=== PATIENT | male | born 1995 | race Hispanic/Latino ===

== ENCOUNTER 2020-09-20 04:30 | Inpatient (IN) | payer OTHER, MEDICAID, SELFPAY ==
[2020-09-20] VITALS (21 sets, daily range): BP systolic 114–155; BP diastolic 70–94; PULSE 66–86; RESP 10–18; TEMP 36.1–37; O2SAT 96–100; BMI 30.6
--- NOTE | 2020-09-20 04:43 | ED_ITS ---
HPI - Extremity Problem General Chief complaint: Extremity Problem,Nontraumatic Stated complaint: RIGHT HAND SWOLLEN AND RED Time Seen by Provider: 09/20/20 04:35 Source: patient Mode of arrival: Ambulatory Limitations: no limitations History of Present Illness HPI Narrative: 25-year-old male nonsmoker with noncontributory medical history presents with a chief complaint of a worsening red, painful and swollen right ring finger. He states that he was poked on the palmar surface of his hand a few days ago by a thorn any developed some redness, pain and swelling within a day. He states about 2 days ago the pain and redness were sufficient to warrant visiting an outside emergency department and they did an incision and drainage and placed him on antibiotics. He states that since them his pain has worsened and now he is unable to move his finger. He denies any systemic findings such as fever, shaking chills nor nausea or vomiting. He is otherwise well and free of complaint. He does have a history of methamphetamine use but only smokes it and has never injected before. He denies any allergies. He had clear liquids about 0430 and food at 0000. Patient is right-handed and denies any previous surgeries MD Complaint: extremity pain Onset (ago): day(s) Pain Consistency: constant Location: right Quality: stabbing and aching Radiation: none Relieving factors: rest Exacerbating factors: range of motion and palpation Related Data Allergies Allergy/AdvReac Type Severity Reaction Status Date / Time No Known Drug Allergies Allergy Verified 09/20/20 05:12 Review of Systems Constitutional Constitutional: Denies chills, Denies fatigue, Denies fever(s), Denies frequent falls, Denies lethargy and Denies weakness Eyes Eyes: Denies change in vision, Denies eye discharge, Denies irritation and Denies loss of vision ENT Ears, Nose, Mouth, and Throat: Denies change in voice, Denies dizziness, Denies neck pain, Denies sore throat and Denies throat swelling Cardiovascular Cardiovascular: Denies chest pain, Denies irregular heart rhythm, Denies lightheadedness, Denies palpitations, Denies dyspnea, Denies dyspnea on exertion and Denies orthopnea Respiratory Respiratory: Denies cough, Denies dyspnea, Denies dyspnea on exertion and Denies wheezing Gastrointestinal Gastrointestinal: Denies abdominal pain, Denies change in bowel habits, Denies diarrhea, Denies nausea and Denies vomiting Musculoskeletal Musculoskeletal: Reports arthralgias, Reports joint swelling, Reports limited range of motion, Denies neck pain and Denies numbness Integumentary/Breasts Skin/Breast: Denies pruritus, Reports erythema, Denies rash, Reports skin pain, Reports skin swelling and Reports wounds Neurologic Neurologic: Denies behavioral changes, Denies confusion, Denies dizziness, Denies frequent falls, Denies loss of vision, Denies numbness and Denies weakness Psychiatric Psychiatric: Denies anxiety, Denies behavioral changes, Denies confusion, Denies depression, Denies homicidal ideation and Denies suicidal ideation Endocrine Endocrine: Denies fatigue, Denies flushing and Denies palpitations Hematologic/Lymphatic Hematologic/Lymphatic: Denies easy bruising Allergic/Immunologic Allergic/Immunologic: Denies urticaria, Denies throat swelling and Denies wheezing Patient History Social History Smoking Status: Former smoker Smoking Status: Former smoker alcohol intake frequency: 0-2 drinks per day Substance Use Type: amphetamines Exam Narrative Exam Narrative: GEN: AOx3 and in mild distress EYES: Pupils are equal, round, and reactive to light and accommodation. Extraoccular muscles are intact bilaterally. There is no subconjunctival hemorrhage or exudate. CHEST: Lungs are clear to auscultation bilaterally and free of wheezes, rales, or rhonchi. Heart rate is regular rhythm, there are no murmurs, clicks, rubs, or gallops. There is no chest wall tenderness. ABD: Abdomen is soft and nontender. There is no guarding or rebound. Bowel sounds are normal in all 4 quadrants. There is no mass or organomegaly. EXT: Right ring finger is significantly erythematous, swollen stuck in flexion. He has significantly increased pain with passive extension and palpation along the flexor tendon. There is a puncture wound on the palmar surface overlying the metacarpophalangeal joint which he states is not only where he was punctured by the thorn but also where the other emergency department had performed an incision and drainage. SKIN: Otherwise Warm, pink, and dry. No erythema or rash Initial Vital Signs Initial Vital Signs: Vital Signs Temperature 97.7 F 09/20/20 04:39 Pulse Rate 80 09/20/20 04:39 Respiratory Rate 18 09/20/20 04:39 Blood Pressure 147/93 H 09/20/20 04:39 Pulse Oximetry 100 09/20/20 04:39 Course Orders Ordered: ED Orders 09/20/20 04:50 C-Reactive Protein Quant Stat COVID19 - ADMIT (DIRECTOR OF RADIOLOGY swab/PCR) Stat Complete Blood Count AUTO DIFF Stat Comprehensive Metabolic Panel Stat Erythrocyte Sedimentation Rate Stat 09/20/20 05:00 Blood Culture Stat Lactated Ringer's (Lactated Ringers) 1,000 mls @ 1,000 mls/hr IV BOLUS ONE Stop: 09/20/20 05:38 Last Admin: 09/20/20 05:07 Dose: 1,000 mls/hr Documented by: Cefazolin Sodium/Dextrose (Ancef) 2 gm in 100 mls @ 200 mls/hr IV NOW ONE Stop: 09/20/20 05:35 Discontinued Medications Hydromorphone HCl (Hydromorphone 0.5 Mg Inj) 0.5 mg IV NOW ONE Stop: 09/20/20 05:07 Last Admin: 09/20/20 05:13 Dose: 0.5 mg Documented by: Consultations Consultation #1: Paged ortho, happy to accept. Admit now and will see this morning. Ancef, elevate, NPO, pain control Time: 04:45 Vital Signs Vital signs: Vital Signs - 8 hr 09/20/20 04:39 Temperature 97.7 F Pulse Rate 80 Respiratory Rate 18 Blood Pressure 147/93 H Pulse Oximetry 100 MDM - Extremity (Nontraumatic) Lab Data Result diagrams: 09/20/20 04:50 09/20/20 04:50 Labs: Lab Results 09/20/20 09/20/20 09/20/20 Range/Units 04:50 04:50 04:50 WBC 11.3 H (4.5-11.0) X10^3/uL RBC 4.54 (4.5-5.9) X10^6/uL Hgb 13.9 (13.5-17.5) g/dL Hct 41.7 (41-53) % MCV 91.9 (80-100) fL MCH 30.7 (26-34) PG MCHC 33.4 (30-36) % RDW 12.5 (11.6-14.8) % Plt Count 174 (150-400) X10^3/uL Neut % (Auto) 77.0 H (50-75) % Lymph % (Auto) 14.5 L (25-40) % [place] % (Auto) 6.0 (3-14) % Eos % (Auto) 2.0 (2-4) % Baso % (Auto) 0.5 (0-2) % Neut # (Auto) 8700 H (4061-4240) /uL Lymph # (Auto) 1600 (1377-5818) /uL [place] # (Auto) 700 (0-900) /uL Eos # (Auto) 200 (0-450) /uL Baso # (Auto) 100 (0-100) /uL Sodium 136 L (137-145) mmol/L Potassium 3.9 (3.4-5.1) mmol/L Chloride 100 (98-107) mmol/L Carbon Dioxide 29 (22-32) mmol/L BUN 12 (9-20) mg/dL Creatinine 0.82 (0.66-1.25) mg/dL Estimated GFR > 60.0 (>60) mL/min BUN/Creatinine Ratio 14.6 (6-22) Glucose 89 (70-100) mg/dL Calcium 9.1 (8.4-10.2) mg/dL Total Bilirubin 0.6 (0.2-1.3) mg/dL AST 26 (17-59) IU/L ALT 20 (<50) IU/L Alkaline Phosphatase 82 (38-126) U/L C-Reactive Protein 6.0 H (<1.0) mg/dL Total Protein 7.4 (6.3-8.2) g/dL Albumin 4.1 (3.5-5.0) g/dL Globulin 3.3 (1.7-4.1) g/dL Albumin/Globulin Ratio 1.2 (1.0-2.8) Discharge Plan Departure Admit Date/Time: 09/20/20 05:13 Admit Provider: Mukesh Parker
[2020-09-20 05:01] LABS: Add Manual Diff / Slide Review NO; Basophils Absolute Auto 100 /uL (0-100); Basophils Percent Auto 0.5 % (0-2); Eosinophils Absolute Auto 200 /uL (0-450); Hematocrit 41.7 % (41-53); Hemoglobin 13.9 g/dL (13.5-17.5); Lymphocytes Absolute Auto 1600 /uL (1100-4500); Lymphocytes Percent Auto 14.5 % (25-40); Mean Corpuscular HGB Conc 33.4 % (30-36); Mean Corpuscular Hemoglobin 30.7 PG (26-34); Mean Corpuscular Volume 91.9 fL (80-100); Monocytes Absolute Auto 700 /uL (0-900); Neutrophils Absolute Auto 8700 /uL (1500-7000); Platelet Count 174 X10^3/uL (150-400); Red Blood Cell Count 4.54 X10^6/uL (4.5-5.9); Red Cell Distribution Width 12.5 % (11.6-14.8); White Blood Cell Count 11.3 X10^3/uL (4.5-11.0)
[2020-09-20 05:07] LABS: Alanine Aminotransferase 20 IU/L (<50); Albumin 4.1 g/dL (3.5-5.0); Albumin Globulin Ratio 1.2 (1.0-2.8); Alkaline Phosphatase 82 U/L (38-126); Aspartate Aminotransferase 26 IU/L (17-59); BUN Creatinine Ratio 14.6 (6-22); Bilirubin Total 0.6 mg/dL (0.2-1.3); Blood Urea Nitrogen 12 mg/dL (9-20); Calcium 9.1 mg/dL (8.4-10.2); Carbon Dioxide 29 mmol/L (22-32); Chloride 100 mmol/L (98-107); Estimated Glomerular Filt Rate > 60.0 mL/min (>60); Globulin 3.3 g/dL (1.7-4.1); Glucose 89 mg/dL (70-100); HEMOLYSIS 26 (0-50); Potassium 3.9 mmol/L (3.4-5.1); Sodium 136 mmol/L (137-145); Total Protein 7.4 g/dL (6.3-8.2)
[2020-09-20] MEDS: LACTATED RINGERS 1,000 ML 1000 ML IV (05:07)
[2020-09-20] MEDS: HYDROMORPHONE 0.5 MG INJ IV (05:13)
[2020-09-20] MEDS: CEFAZOLIN 2 GM/100 ML FROZ.PIGGY IV ×4 (05:20→23:49)
[2020-09-20 05:21] LABS: Erythrocyte Sedimentation Rate 17 MM/HR (0-15)
[2020-09-20 05:53] LABS: COVID19 - ADMIT (NP swab/PCR) Negative (Negative)
--- NOTE | 2020-09-20 06:35 | PC.NURSE ---
Admitted to room 218 for right ring finger Cellulitis. Oriented to his room & encouraged to call if he needed to get OOB to the BR. Pt C/O pain notified Dr. Parker via answering service, but not able to get a hold of him. Left a message to call here in [facility]. Awaiting for MD call pt. very tired & sleepy. Will cont. POC & monitor.
--- NOTE | 2020-09-20 06:59 | PC.NURSE ---
Called ER to get an order, Rani CAMEJO states is busy talking to a pt. Dr. Parker called back ordered to give LR @ 50 cc/hr. after bolus in done. & Oxycodone 5 mg. with sips of water. Will enter order.
[2020-09-20] MEDS: LACTATED RINGERS 1,000 ML 50 ML IV ×2 (07:46→12:40)
--- NOTE | 2020-09-20 08:01 | PC.NURSE ---
Addendum entered by Jaja Vargas R.N. 09/20/20 10:50: Patient becoming agitated, crying, yelling fuck and it hurts. Oxycodone 5 mg administered. Patient remains tearful. MD called about ordered pain medications, OK'd to give second Oxy. This RN returned to patients room, patient is now side lying, quiet, with eyes closed. Will continue to monitor. Original Note: Patient resting in bed with eyes closed, breathing unlabored, 99% on RA. Lungs CTA. Patient c/o pain 09/27. Patient drowsy, does not open eyes to respond. LR @50cc/hr infusing in LAC. R 3rd finger, swollen, notable erythema, joint stiffness. HR WNL, patient denies headache, SOB or dizziness. BT active x 4, reports last BM 09/20. Patient instructed to void and remove personal clothing and jewelry, patient mumbled ok. Bed alarm on, call light in reach.
[2020-09-20] MEDS: LACTATED RINGERS 1,000 ML 100 ML IV ×3 (08:15→21:28)
--- NOTE | 2020-09-20 08:32 | PM.CN ---
History of Present Illness Consult details Date Patient Seen: 09/20/20 Time Patient Seen: 08:33 Chief complaint: RIGHT HAND SWOLLEN AND RED Reason for consult: right 4th finger infection Narrative: 25-year-old male nonsmoker with noncontributory past medical history presents with a chief complaint of a worsening red, painful and swollen right ring finger. He states that he was poked on the palmar surface of his hand a few days ago by a thorn any developed some redness, pain and swelling within a day. He states about 2 days ago the pain and redness were sufficient to warrant visiting an outside emergency department ([facility]) and they did an incision and drainage and placed him on oral abx antibiotics (keflex and bactrim). He states that since them his pain has worsened and now he is unable to move his finger without pain. Patient denies systemic symptoms denies any nausea vomiting fevers chills. Meds Home Medications and Allergies Home Medications Medication Instructions Recorded Confirmed Type No Known Home Medications 09/20/20 09/20/20 History Allergies Allergy/AdvReac Type Severity Reaction Status Date / Time No Known Drug Allergies Allergy Verified 09/20/20 05:12 Review of Systems Review of Systems ROS: Yes All systems reviewed with the patient and are negative except as otherwise documented Exam Vital Signs (past 8 hours): - 09/20/20 04:39 09/20/20 06:02 09/20/20 07:34 Temperature 97.7 F 97.4 F L 98.6 F Pulse Rate 80 74 73 Respiratory Rate 18 18 17 Blood Pressure 147/93 H 142/82 H 145/73 H Pulse Oximetry 100 100 100 Oxygen Delivery Method Room Air Narrative Exam Narrative: Neurovascularly intact. He does have fusiform swelling of the proximal to mid phalanx the proximal portion of the right 4th digit. He has not fusiform swelling of the entire digit. He is able to flex and extend the finger actively. He does have pain with terminal flexion and extension. He does not have any tenderness to palpation at the distal phalanx over the flexor tendon. He has not have a positive Tinel's over the flexor tendon proximally. There was a small 2 mm wound over the palmar aspect of his hand in line with the long axis of the 4th finger. This appears to be where he had a small I&D for stone removal. No active drainage from the site at this time. White discoloration at the small wound appears to be purulence under the skin. Objective Labs Result Diagrams: 09/20/20 04:50 09/20/20 04:50 Labs: Laboratory Results - last 24 hr 09/20/20 09/20/20 09/20/20 04:50 04:50 04:50 WBC 11.3 H RBC 4.54 Hgb 13.9 Hct 41.7 MCV 91.9 MCH 30.7 MCHC 33.4 RDW 12.5 Plt Count 174 Neut % (Auto) 77.0 H Lymph % (Auto) 14.5 L [place] % (Auto) 6.0 Eos % (Auto) 2.0 Baso % (Auto) 0.5 Neut # (Auto) 8700 H Lymph # (Auto) 1600 [place] # (Auto) 700 Eos # (Auto) 200 Baso # (Auto) 100 ESR 17 H Sodium 136 L Potassium 3.9 Chloride 100 Carbon Dioxide 29 BUN 12 Creatinine 0.82 Estimated GFR > 60.0 BUN/Creatinine Ratio 14.6 Glucose 89 Calcium 9.1 Total Bilirubin 0.6 AST 26 ALT 20 Alkaline Phosphatase 82 C-Reactive Protein 6.0 H Total Protein 7.4 Albumin 4.1 Globulin 3.3 Albumin/Globulin Ratio 1.2 SARS-CoV-2 (PCR) 09/20/20 04:50 WBC RBC Hgb Hct MCV MCH MCHC RDW Plt Count Neut % (Auto) Lymph % (Auto) [place] % (Auto) Eos % (Auto) Baso % (Auto) Neut # (Auto) Lymph # (Auto) [place] # (Auto) Eos # (Auto) Baso # (Auto) ESR Sodium Potassium Chloride Carbon Dioxide BUN Creatinine Estimated GFR BUN/Creatinine Ratio Glucose Calcium Total Bilirubin AST ALT Alkaline Phosphatase C-Reactive Protein Total Protein Albumin Globulin Albumin/Globulin Ratio SARS-CoV-2 (PCR) Negative Assessment & Plan Assessment & Plan narrative: Patient is a 25-year-old male who sustained a thorn to the palmar aspect of his right hand in line with the long axis of 4th degrees finger. This resulted in localized redness and swelling he went to [facility] where the thorn was removed knees placed on oral antibiotics. His swelling has gotten worse over the last 2 days. Does not appear to be flexor tenosynovitis at this time however appears to be evolving into this. Plan is for I&D today with cultures with subsequent directed IV antibiotics. -keep NPO -OCTOR today for I&D Time Spent With Patient Time with patient: 15-24 minutes
[2020-09-20] MEDS: OXYCODONE IR 5 MG TABLET PO (10:00)
--- NOTE | 2020-09-20 11:42 | PT-IP ANOTE ---
Addendum entered and electronically signed by Jannette Lozano, PT 09/20/20 13:15: Confirmed with ordering provider that this PT consult was entered in error. Will discharge orders. Original Note: Pt to OR for right hand 4th digit I&D today at 1230. Called to clarify with ordering provider whether this consult was entered mistakenly. Will follow up after surgery if appropriate.
--- NOTE | 2020-09-20 13:07 | PM.PREOP ---
Pre-operative Note COVID-19 COVID-19 status: Negative Result date/Date tested (Pos, Neg/Pending): 09/20/20 Interval Note History & Physical reviewed/Exam performed by Physician: Yes Changes to H&P: No H&P completed within 30 days and has changed as indicated here:: Plan for right 4th finger irrigation and debridement
--- NOTE | 2020-09-20 13:40 | SUR.OPER ---
Supine on padded OR bed, head on pillow, right arm on large padded arm board controlled by [employer], left arm secured on padded arm board at <90 degrees abduction, legs uncrossed, safety belt at thigh, tape over blanket over lower legs.
--- NOTE | 2020-09-20 14:17 | PM.OP.1 ---
Operative Date/Time/Diagnoses Date of procedure: 09/20/20 Time of procedure: 14:17 Pre-op diagnosis: right ring finger abscess/pyogenic flexor tendon synovitis Post-op diagnosis: same Procedure & Clinicians Procedure: Sharp irrigation debridement of right ring finger abscess as well as irrigation of the flexor tendon sheath and release of the A1 francoise Same procedure as scheduled: Yes Indications: Patient is a 25-year-old male who presented with worsening pain in the right ring finger extending down to the palmar aspect of his hand. He had sustained a thorn into the palmar aspect of his hand several days ago he was subsequent seen at [facility] where the thorn was removed after small I&D and oral antibiotics were initiated. He presented here this morning with worsening of pain despite antibiotics. Patient has fusiform swelling of the proximal half of his digits but not the distal half. He has signs of evolving flexor tendon synovitis. Surgeon: Mukesh Parker Click Yes if Unassisted: Yes Anesthesia Type: General Operative Notes Findings: Abscess in the subcutaneous tissues of the right palmar aspect of the hand in line with the right ring finger. Abscess extends into the palmar and dorsal aspects of the proximal half of the right ring finger P scant purulence within the flexor tendon sheath. Closure Type: non-primary Specimen(s): other (2x wound culture) Estimated Blood Loss (mL): 50 Blood products transfused: none Tourniquet time (min): 19 Procedure in detail: Patient was met in the preoperative holding area where the site and side of surgery were marked by . Informed consent was reviewed including the risks and benefits of irrigation debridement and release of the A1 francoise. Patient demonstrates understanding of the risks and benefits of proceeding with surgery and wishes to proceed. Informed consent was signed. All last minute questions were answered. Patient was then brought back to the operating room where he was induced under general anesthesia. A nonsterile tourniquet was placed on the right arm and the right arm was then prepped and draped in normal sterile fashion with Betadine. A surgical time-out was performed verifying the site and side of surgery as well as the name of the patient. The hand was elevated for several minutes prior to inflating the tourniquet. It was not exsanguinated with an Esmarch due to concern for infection spread. A 15 blade was used to make an incision at the distal palmar crease in line with the right ring finger. Patient was then used to spread down to the level of the flexor tendon. At this point purulence was encountered in the subcutaneous tissue as well as the small amount of purulence within the flexor tendon sheath itself. Next I turned my attention to the small wound just distal to the distal palmar crease where the dorm was apparently removed. Necrotic appearing tissue was ellipsed out and gross purulence was encountered at this time point. A new 15. Blade was then used to make incision at the distal interphalangeal crease of the right ring finger on the palmar aspect a 15 blade was then used to incise the flexor tendon sheath at this level. I then returned my attention to the area where the skin was ellipsed out and sharp debridement of necrotic tissue and purulence was then performed. I was able to express purulence by placing pressure on the finger itself and the surrounding tissues. After several rounds of this head was no longer able to express any further purulence. An Angiocath was then inserted into the flexor tendon sheath after release of the A1 francoise as able to flush 120 cc of normal saline through the Angiocath and I could see clear fluid being expressed from the A5 francoise incision. I felt like there was some purulence over the dorsal aspect of the right ring finger as well and made a counter incision just radial to the dorsal aspect of the finger at the proximal phalanx. I then used the ledbetter at this spread as well and I then irrigated all wounds with 3 L of normal saline using cysto tubing did blunt debridement while irrigating with normal saline no further purulence was encountered. At this point the tourniquet was let down at 19 minutes the time there is no pulsatile arterial bleeding. Plain packing was then placed into the incisions with exception of the incision for the A5 francoise. All incisions were then dressed with Xeroform and dry dressings. Complications: none Post-operative Condition: stable Disposition: PACU Plan for aftercare: Admit for IV antibiotics, antibiotics will be tailored based off of the intraoperative cultures. Nonweightbearing right upper extremity.
--- NOTE | 2020-09-20 16:28 | CM.DANOTE ---
DCP/Assessment: Reviewed chart. Patient is a 25yr old male admitted to [facility] with right swollen hand (specifically finger) No PCP listed. Primary payor is 1)[facility] 2)Medicaid. Met with patient this AM explained CM/SW role. Patient reports that he actively smokes (meth) on regular basis. Patient reports that he is currently staying in [place]. Patient reports that he has been in/out of penitentiary for the last year. Patient having I&D today. Patient reports that he currently wants resources for substance abuse. CALL OR CONTACT CENTRE COACH notified patient that they will be provided prior to d/c. P: Home when stable. CALL OR CONTACT CENTRE COACH to provide patient with community resources for substance abuse. LAYA Carlson Discharge Planning/Care Management CM Discharge Assessment Start: 09/20/20 16:24 Freq: Status: Active Protocol: Document 09/20/20 16:24 KJS (Rec: 09/20/20 16:28 KJS [id number]) Discharge Planning Assessment Assigned Silverer LAYA Carlson Contact Information Jenna Hanson (Mother) ph# [phone] Advance Directives? No Advance Directives on File No History Provided By Patient,Medical Record Prior Living Arrangements Apartment/Condo Household Members significant other,family Type of transporation used prior to Drives own vehicle admit Willing to Return to Facility? No Independent with ADL's Yes Is patient alert and oriented? Yes Caregiver for Another No Comment Pending needs. Transportation Arrangement Patient reports that he has car in [facility] parking lot. Referrals Initiated Other Additional Comment Patient would benefit from substance abuse resources prior to d/c. Whiteboard Updated in Patient Room with Yes name and ext. # of Silverer Review Status In Process Next Review Type Continued Stay Review
[2020-09-20] MEDS: VANCOMYCIN 1,000 MG/200 ML PIGGYBACK 200 MG IV (18:01)
[2020-09-20] MEDS: OXYCODONE IR 10 MG TABLET PO ×2 (18:15→21:37)
--- NOTE | 2020-09-20 18:28 | PC.NURSE ---
Addendum entered by Ofelia Polo R.N. 09/20/20 22:13: Pt resting at intervals Med 2120 for discomfort. IVF continue as per orders. MD notified, order for nicoderm patch Arm elevated on pillow w/ice. Call light w/in reach, pt calls appropriately for needs., Continue w/plan of care. Original Note: Pt dosing at intervals. Lungs clear, SpO2 99% RA Right hand dsg CDI, pulses ++ IVF LR infusing @ 100cc/hr into LAC via pump w/o incidence. Med w/oxycodone at 1820 for 7/10 pain. Call light w/in reach, pt calls appropriately for needs.
[2020-09-20] MEDS: ACETAMINOPHEN 325 MG TABLET 975 MG PO (21:35)
[2020-09-20] MEDS: NICOTINE 14 PATCH 14 MG TOP (22:31)
[2020-09-21 00:50] VITALS: BP 132/86; PULSE 79; RESP 18; TEMP 37.2; O2SAT 100
[2020-09-21] MEDS: OXYCODONE IR 10 MG TABLET PO ×6 (00:58→21:20)
--- NOTE | 2020-09-21 01:47 | PC.NURSE ---
patient asleep at shift change but now awake. Girlfriend in room/bed with patient. Breath sounds CTA with RA sat of 100%. HRR. Denies nausea. BT present and abdomen is soft; reports he has passed flatus (giggling when responding about flatus). Denies dysuria, frequency or urgency with urination. Is able to turn self and gets up to bathroom independently. Right hand dressing is CDI; 4th finger is erythematous to mid knuckle and swollen. Fingers are cool and dry with good capillary refill. Is able to move all fingers somewhat limitedly and has sensation to light touch with some slight tingling. Did complain of 8/10 pain so medicated with Oxycodone.; has arm elevated on pillows and ice pack applied. Placed on contact isolation as showing gm + cocci on gm stain so will need to r/o MRSA. Fall risk score is low so bed alarm is not being used.
[2020-09-21 04:37] VITALS: BP 151/98; PULSE 77; RESP 18; TEMP 36.4; O2SAT 99
[2020-09-21 06:54] LABS: Hematocrit 40.2 % (41-53); Hemoglobin 13.6 g/dL (13.5-17.5); Mean Corpuscular HGB Conc 33.8 % (30-36); Mean Corpuscular Hemoglobin 30.9 PG (26-34); Mean Corpuscular Volume 91.3 fL (80-100); Platelet Count 160 X10^3/uL (150-400); Red Cell Distribution Width 12.4 % (11.6-14.8); White Blood Cell Count 9.8 X10^3/uL (4.5-11.0)
[2020-09-21] MEDS: ACETAMINOPHEN 325 MG TABLET 975 MG PO ×3 (10:00→21:19)
[2020-09-21] MEDS: NICOTINE 14 PATCH 14 MG TOP (10:00)
[2020-09-21] MEDS: LACTATED RINGERS 1,000 ML 100 ML IV (10:20)
[2020-09-21 10:30] VITALS: BP 138/78; PULSE 78; RESP 18; TEMP 36.7; O2SAT 100
[2020-09-21 12:00] VITALS: BP 133/77; PULSE 76; RESP 17; TEMP 36.6; O2SAT 100
[2020-09-21] MEDS: VANCOMYCIN 1,000 MG/200 ML PIGGYBACK 200 MG IV ×2 (14:15→18:28)
[2020-09-21] MEDS: SODIUM CHLORIDE 0.9% 250 ML 21 ML IV (14:16)
--- NOTE | 2020-09-21 15:20 | PC.NURSE ---
Pt lethargic this a.m. easily awakened A&Ox3. although sleeping a lot throughout the morning continuously reports pain to R hand/finger /10. R ring finger Swollen and red, reports tingling sensation and pain slight movement able to wiggle fingers. VSS, afebrile. PA at bedside changing dressing this afternoon. Vancomycin started, pt needing reminding to keep IV arm straight. Endorsed to oncoming RN.
[2020-09-21 16:05] VITALS: BP 125/71; PULSE 71; RESP 20; TEMP 36.4; O2SAT 100
--- NOTE | 2020-09-21 16:22 | CM.DPC ---
DCP Continued: Met with patient at bedside. Provided recovery resources and information: [place], [place]. Patient was very receptive to information. PLAN: CM Team to continue to follow. LAYA Carlson MSW Student
--- NOTE | 2020-09-21 16:45 | PM.PNPO.1 ---
Subjective Subjective Date Patient Seen: 09/21/20 Time Patient Seen: 15:31 Interval history: Pain is moderate to severe. Reports no N/V. Denies fever or chills. Exam Vital Signs (past 8 hours): - 09/21/20 10:30 09/21/20 12:00 Temperature 98.1 F 98 F Pulse Rate 78 76 Respiratory Rate 18 17 Blood Pressure 138/78 133/77 Pulse Oximetry 100 100 Oxygen Delivery Method Room Air Oxygen Flow Rate 0 Const General: cooperative and well developed Orientation: alert and oriented x3 Extrem Right upper extremity: hand (Dressing inctact. Scant drainage. Packing removed and replaced.) Objective Labs Result Diagrams: 09/21/20 06:35 09/20/20 04:50 Labs: Laboratory Results - last 24 hr 09/21/20 06:35 WBC 9.8 RBC 4.40 L Hgb 13.6 Hct 40.2 L MCV 91.3 MCH 30.9 MCHC 33.8 RDW 12.4 Plt Count 160 PFSH Social History household members: significant other and family Smoking Status: Current every day smoker alcohol intake: former Assessment & Plan Post-op Postoperative Procedures: Procedures Operation Date: 09/20/20 13:00 Actual Procedures Side Surgeon p I&D 4th ring finger Right Mukesh Parker MD Status post I&D. New packing and dressing today. Waiting on culture results. Quality VTE Deep Vein Thrombosis/Pulmonary Embolism Present on Admission: No
[2020-09-21 21:45] VITALS: BP 111/64; PULSE 79; RESP 21; TEMP 36.6; O2SAT 100
[2020-09-22] MEDS: VANCOMYCIN 1,000 MG/200 ML PIGGYBACK 200 MG IV ×3 (01:19→13:21)
[2020-09-22 01:20] VITALS: BP 132/67; PULSE 77; RESP 18; TEMP 36.4; O2SAT 98
[2020-09-22] MEDS: OXYCODONE IR 10 MG TABLET PO ×7 (01:28→21:19)
--- NOTE | 2020-09-22 02:58 | PC.NURSE ---
patient is alert and oriented. Breath sounds CTA with RA sat of 98%. HRR. Denies nausea. BT present and is passing flatus. Denies dysuria, frequency or urgency with urination. Independent with mobility. Dressing to right hand is CDI. Has good radial pulse, fingers warm to touch and can move all fingers; denies tingling. Refusing to wear SCD's tonight so reminded to ankle wave. States pain is 7/10 so medicated with Oxycodone; declines ice pack but extremity is elevated on pillows. Remains on contact isolation as wound culture is growing staph aureus. Fall risk score is low.
[2020-09-22 05:39] VITALS: BP 127/77; PULSE 58; RESP 18; TEMP 36.1; O2SAT 100
[2020-09-22] MEDS: SODIUM CHLORIDE 0.9% FLUSH 10 ML IV ×3 (06:29→21:19)
[2020-09-22] MEDS: ACETAMINOPHEN 325 MG TABLET 975 MG PO ×3 (08:36→21:18)
[2020-09-22] MEDS: NICOTINE 14 PATCH 14 MG TOP (08:38)
[2020-09-22 08:44] VITALS: BP 126/89; PULSE 80; RESP 18; TEMP 35.9; O2SAT 99
[2020-09-22 11:34] VITALS: BP 140/85; PULSE 70; RESP 18; TEMP 36.1; O2SAT 100
[2020-09-22 11:41] LABS: Add Manual Diff / Slide Review NO; Basophils Absolute Auto 100 /uL (0-100); Basophils Percent Auto 0.9 % (0-2); Eosinophils Absolute Auto 300 /uL (0-450); Eosinophils Percent Auto 4.3 % (2-4); Hematocrit 40.9 % (41-53); Hemoglobin 13.9 g/dL (13.5-17.5); Lymphocytes Absolute Auto 1600 /uL (1100-4500); Lymphocytes Percent Auto 27.1 % (25-40); Mean Corpuscular HGB Conc 33.9 % (30-36); Mean Corpuscular Hemoglobin 31.1 PG (26-34); Mean Corpuscular Volume 91.7 fL (80-100); Monocytes Absolute Auto 500 /uL (0-900); Monocytes Percent Auto 8.2 % (3-14); Neutrophils Absolute Auto 3600 /uL (1500-7000); Neutrophils Percent Auto 59.5 % (50-75); Platelet Count 208 X10^3/uL (150-400); Red Blood Cell Count 4.46 X10^6/uL (4.5-5.9); Red Cell Distribution Width 12.5 % (11.6-14.8)
[2020-09-22 12:00] LABS: C-Reactive Protein Quant 6.4 mg/dL (<1.0)
[2020-09-22] MEDS: VANCOMYCIN TROUGH 1 REQUEST MISC (12:30)
[2020-09-22 12:45] LABS: Erythrocyte Sedimentation Rate 30 MM/HR (0-15)
[2020-09-22 13:11] LABS: Vancomycin Trough 10.6 ug/mL (10-20)
--- NOTE | 2020-09-22 14:47 | P.PN_ITS ---
Subjective Subjective Date Patient Seen: 09/22/20 Time Patient Seen: 11:27 Interval history: Pain moderate to severe overall improved today compared to yesterday. Denies fever or chills. No nausea or vomiting. Exam Vital Signs (past 8 hours): - 09/22/20 08:44 09/22/20 11:34 Temperature 96.7 F L 96.9 F L Pulse Rate 80 70 Respiratory Rate 18 18 Blood Pressure 126/89 140/85 Pulse Oximetry 99 100 Oxygen Delivery Method Room Air Oxygen Flow Rate 0 Narrative Exam Narrative: The dressing is removed. knee the replaced packing. Still fair amount of swelling of the finger. Sensation is intact in good capillary refill distally. Objective Labs Result Diagrams: 09/22/20 11:35 09/20/20 04:50 Labs: Laboratory Results - last 24 hr 09/22/20 09/22/20 09/22/20 11:35 11:35 12:20 WBC 6.0 RBC 4.46 L Hgb 13.9 Hct 40.9 L MCV 91.7 MCH 31.1 MCHC 33.9 RDW 12.5 Plt Count 208 Neut % (Auto) 59.5 Lymph % (Auto) 27.1 [place] % (Auto) 8.2 Eos % (Auto) 4.3 H Baso % (Auto) 0.9 Neut # (Auto) 3600 Lymph # (Auto) 1600 [place] # (Auto) 500 Eos # (Auto) 300 Baso # (Auto) 100 ESR 30 H C-Reactive Protein 6.4 H Vancomycin Trough 10.6 Gram Stain Final 09/20/20-1444 White blood cells Moderate WBCs Gram Positive Cocci Scant Aerobic Culture for wounds Final 09/22/20- 0702 Organism 1 Methicillin Resis Staph Aureus Growth MODERATE Called To: NR.AMH MRSA? YES 1. Methicillin Resis Staph Aureus M.I.C. RX --------- --- * Daptomycin 0.25 S * Vancomycin 1 S * Ciprofloxacin >=8 R * Clindamycin 0.25 S * Doxycycline 2 S * Erythromycin >=8 R * Gentamicin <=0.5 S * Levofloxacin 4 I * Linezolid 2 S * Moxifloxacin 1 S * Oxacillin [place] >=4 R * Rifampin <=0.5 S * Tetracycline >=16 R * Trimethoprim/Sulfamethoxazole >=320 R Anaerobic Culture Preliminary 09/22/20- 1025 No growth. [facility] Social History household members: significant other and family Smoking Status: Current every day smoker alcohol intake: former Assessment & Plan Post-op Postoperative Procedures: Procedures Operation Date: 09/20/20 13:00 Actual Procedures Side Surgeon p I&D 4th ring finger Right Mukesh Parker MD Postop day 2 status post I&D 4th ring finger. After evaluation by Dr. lovell in discussion recommend 1 more day of IV antibiotics. The packing needs to be replaced daily. Keep dressing clean and dry. Possible discharge home today if continues to improve otherwise may require repeat I and D. Quality VTE Deep Vein Thrombosis/Pulmonary Embolism Present on Admission: No
[2020-09-22 16:19] VITALS: BP 133/74; PULSE 55; RESP 20; TEMP 36.8; O2SAT 98
[2020-09-22] MEDS: VANCOMYCIN 1,500 MG/300 ML PIGGYBACK 200 MG IV (18:16)
[2020-09-22] MEDS: SODIUM CHLORIDE 0.9% 250 ML 21 ML IV (18:17)
[2020-09-22 19:35] VITALS: BP 130/70; PULSE 62; RESP 20; TEMP 36.9; O2SAT 100
[2020-09-23] MEDS: VANCOMYCIN 1,500 MG/300 ML PIGGYBACK 200 MG IV (02:59)
[2020-09-23 03:00] VITALS: BP 127/69; PULSE 72; RESP 16; TEMP 36.7; O2SAT 98
[2020-09-23] MEDS: SODIUM CHLORIDE 0.9% FLUSH 10 ML IV ×2 (03:01→07:48)
[2020-09-23] MEDS: OXYCODONE IR 10 MG TABLET PO ×4 (03:01→13:33)
--- NOTE | 2020-09-23 03:21 | PC.NURSE ---
Has been asleep since shift change and now awakened to do vitals/assessment and start IV antibiotics. When asked about pain patient states it is sharp and rates severity as 7/10 so medicated with Oxycodone. Is alert and oriented. Breath sounds CTA with RA sat of 98%. HRR. Denies nausea. BT present and abdomen is soft; reports last BM was on Sunday. Denies dysuria, frequency or urgency with urination. Independent with mobility. Dressing to right hand is CDI; 4th finger is still erythematous to mid knuckle and is swollen. Does state fingers tingle again tonight; are warm to touch with good capillary refill. Refusing SCD's so reminded to ankle wave. Fall risk score is low. Wound culture + for MRSA and remains on contact isolation.
[2020-09-23] MEDS: ACETAMINOPHEN 325 MG TABLET 975 MG PO ×2 (07:47→13:33)
--- NOTE | 2020-09-23 08:39 | PM.PNPO.1 ---
Subjective Subjective Date Patient Seen: 09/23/20 Time Patient Seen: 08:39 Interval history: Patient states he is doing well and is in no pain. At this time patient denies fever, chills, nausea, shortness of breath, chest pain, or urinary retention. Patient states that he is eager to go home and is not looking forward to any further operations procedures. Exam Vital Signs (past 8 hours): - 09/23/20 03:00 Temperature 98.0 F Pulse Rate 72 Respiratory Rate 16 Blood Pressure 127/69 Pulse Oximetry 98 Oxygen Delivery Method Room Air Oxygen Flow Rate 0 Narrative Exam Narrative: 25-year-old male postop day 3 status post irrigation and debridement of the right ring finger abscess, irrigation of the flexor tendon sheath, and release of A1 francoise. Patient is resting comfortably in bed, is in no acute distress and is alert and oriented x3. Skin is warm and dry. Mild fusiform swelling surrounding the right 4th digit on the right hand. Right 4th digit with mild amount of erythema (patient states that the swelling and redness has decreased substantially). Thumb opposition performed without difficulty or discomfort. Capillary refill less than 2 seconds. Good sensation throughout the right upper extremity to light touch. Resp Effort & Inspection: normal respiratory effort and able to speak in complete sentences Skin General: no rashes or lesions noted Objective Labs Result Diagrams: 09/22/20 11:35 09/20/20 04:50 Labs: Laboratory Results - last 24 hr 09/22/20 09/22/20 09/22/20 11:35 11:35 12:20 WBC 6.0 RBC 4.46 L Hgb 13.9 Hct 40.9 L MCV 91.7 MCH 31.1 MCHC 33.9 RDW 12.5 Plt Count 208 Neut % (Auto) 59.5 Lymph % (Auto) 27.1 [place] % (Auto) 8.2 Eos % (Auto) 4.3 H Baso % (Auto) 0.9 Neut # (Auto) 3600 Lymph # (Auto) 1600 [place] # (Auto) 500 Eos # (Auto) 300 Baso # (Auto) 100 ESR 30 H C-Reactive Protein 6.4 H Vancomycin Trough 10.6 PFSH Social History household members: significant other and family Smoking Status: Current every day smoker alcohol intake: former Assessment & Plan Post-op Postoperative Procedures: Procedures Operation Date: 09/20/20 13:00 Actual Procedures Side Surgeon p I&D 4th ring finger Right Mukesh Parker MD Postoperative day: 3 Postoperative status: doing well Postoperative plan narrative: Patient is eager to leave the hospital and has stated that he has no interest in further procedures or surgeries at this time. Patient states that he is doing well overall and is ready to go home. Will consult pharmacy for PO antibiotics recommendations. Quality VTE Deep Vein Thrombosis/Pulmonary Embolism Present on Admission: No
[2020-09-23 09:09] VITALS: BP 129/71; PULSE 85; RESP 18; TEMP 36.8; O2SAT 98
[2020-09-23] MEDS: VANCOMYCIN 1,500 MG/300 ML PIGGYBACK 150 MG IV (10:23)
[2020-09-23 11:37] LABS: C-Reactive Protein Quant 2.5 mg/dL (<1.0)
[2020-09-23 12:00] VITALS: BP 124/69; PULSE 73; RESP 18; TEMP 35.9; O2SAT 96
--- NOTE | 2020-09-23 12:39 | P.DS_ITS ---
History of Present Illness History of Present Illness Date Patient Seen: 09/23/20 Time Patient Seen: 12:39 Chief complaint: RIGHT HAND SWOLLEN AND RED Narrative: Refer to previous H PI Discharge Providers Provider Date of admission: 09/20/20 05:13 Discharge Date: 09/23/20 Consults: 09/20/20 08:04 Consult to Discharge Planning Routine Comment: Consult to Physical Therapy Evaluate & Treat Comment: Physician Instructions: Evaluate and Treat Consult to Respiratory Therapy Evaluate & Treat Comment: Physician Instructions: Evaluate and treat 09/20/20 12:39 Consult to Respiratory Therapy Evaluate & Treat Comment: Physician Instructions: Evaluate and treat 09/20/20 16:08 Consult to Discharge Planning Routine Comment: Discharge provider: Monty Covarrubias PA-C Summary Hospital Course Discharge Diagnosis: Right ring finger abscess Pyogenic flexor tendon synovitis Status post irrigation and debridement of right ring finger abscess, irrigation of the flexor tendon sheath, and release of A1 francoise Hospital Course: Patient was admitted to the hospital following the above-listed procedure for the above-listed diagnoses. Following the procedure the patient h as been convalescing appropriately in his pain has been managed with current pain control regimen. That the course of the patient's stay he has denies fever, chills, nausea, chest pain, shortness of breath, or urinary retention. Patient has had good sensation throughout the right upper extremity following the procedure. The swelling around the right 4th digit has decreased substantially since his admission. Patient has remained nonweightbearing on the right upper extremity throughout his stay. Status at Discharge Cognitive/behavioral status at discharge: oriented Functional status at discharge: independent ambulation Overall status at discharge: patient is progressing back to baseline Exam Vital Signs (past 8 hours): - 09/23/20 09:09 09/23/20 12:00 Temperature 98.3 F 96.7 F L Pulse Rate 85 73 Respiratory Rate 18 18 Blood Pressure 129/71 124/69 Pulse Oximetry 98 96 Oxygen Delivery Method Room Air Oxygen Flow Rate 0 Narrative Exam Narrative: Patient is resting comfortably bed, is in no acute distress, is alert and oriented x3. Skin is warm and dry. Right 4th digit on the right hand has fusiform swelling and mild erythema (patient states has improved substantially). Thumb opposition intact, good good sensation appreciated throughout the right upper extremity. Capillary refill less than 2 seconds. Const General: cooperative, healthy appearing and comfortable Resp Effort & Inspection: normal respiratory effort and able to speak in complete sentences Skin General: no rashes or lesions noted Objective Labs Result Diagrams: 09/22/20 11:35 09/20/20 04:50 Labs: Laboratory Results - last 24 hr 09/22/20 09/22/20 09/23/20 11:35 12:20 11:00 ESR 30 H C-Reactive Protein 2.5 H Vancomycin Trough 10.6 PFSH Social History household members: significant other and family Smoking Status: Current every day smoker alcohol intake: former Discharge Assessment & Plan Assessment and Plan Assessment: Patient is doing well. Plan of Treatment: Patient is to work with scheduled hand therapy following discharge from the hospital. Following discharge patient is to follow-up with Dr. Parker in clinic. The patient is to continue his current pain control regimen as it is adequately controlling the patient's pain level. Patient is to keep dressing over the right 4th digit intact and dry. Patient is to remain nonweightbearing on the right upper extremity. Patient has been advised to contact clinic with any concerns or questions. Any signs of increased swelling, redness, or increased pain around the digit should be reported to the clinic. Discharge Plan Discharge Plan Patient Disposition: Home Provider Discharge Comment: Been cleared for discharge. Discharge orders & Medications Prescriptions: New acetaminophen 325 mg Tablet 975 mg PO TID Qty: 90 RF: 0 doxycycline hyclate 100 mg Tablet 100 mg PO BID Qty: 42 RF: 0 oxycodone 10 mg Tablet 10 mg PO Q3HR PRN (Reason: Pain, Severe (7-10)) Qty: 10 RF: 0 No Action No Known Home Medications RF: 0 Diet/Activity/Treatments Diet: Diet as Tolerated Activity: Nonweightbearing on the right upper extremity. Skin/Wound/Dressing Care Report to your healthcare provider any signs of infection, such as:: chills, fever, night sweats, increased pain, unusual drainage and unusual redness Dressing: Dressing to remain clean, dry, and intact. Visit Report/Discharge Packet Instructions: DI for Heart Failure, DI for Prescription Opioid Use, DI for Incision and Drainage of a Joint, DI for Incision and Drainage, [facility]: Wound Care Quality VTE Deep Vein Thrombosis/Pulmonary Embolism Present on Admission: No
[2020-09-23] MEDS: DOXYCYCLINE HYCLATE 100 MG TABLET PO (13:00)
--- NOTE | 2020-09-23 14:15 | PC.NURSE ---
Day shift: Paperwork signed and all questions answered. Made sure Pt understands the importance of going to follow-up appointment this Sunday (this appointment has been made by MD already). Dressing changed by Dr Parker this afternoon and is CDI. Pt has all personal belongings. Pain has been well controlled with PO Tylenol and Oxycodone per JUL. Pt encoraged to drink plenty of fluids and take stool softener so he doesn't get constipated. Pt taken to car driven by his uncle at approx 1425. Pt has MD scripts and he said he was going to drop them off right away. Pt also informed to take all the antibiotics until they are all gone. He said he would do this. Pt very happy to be going home today.
--- NOTE | 2020-09-23 14:59 | CM.DPNOTE ---
DC Note DC home today w/family, as expected. No needs from DCP team JW
== END 2020-09-23 14:23 | disposition home or self-care (01) | DRG 316 ==
LOC: ED 05:12 → AC 05:19
PROVIDERS: Physician Assistant; Admitting Provider Orthopaedic Surgery Adult Reconstructive Orthopaedic Surgery; Emergency Provider Emergency Medicine; Referring Provider Emergency Medicine; Visit Provider Orthopaedic Surgery Adult Reconstructive Orthopaedic Surgery
PROC: 0L970ZZ Drainage of Right Hand Tendon, Open Approach (ICD-10-PCS; principal; 2020-09-20 13:00)
DX: M65.141 Other infective (teno)synovitis, right hand (principal); L02.511 Cutaneous abscess of right hand; I96 Gangrene, not elsewhere classified; B95.62 Methicillin resistant Staphylococcus aureus infection as the cause of diseases classified elsewhere; Z20.822 Contact with and (suspected) exposure to COVID-19
CPT/HCPCS: 36415; 80053; 80202; 85025; 85027; 85651; 86140; 87040; 87070; 87075; 87077; 87147; 87186; 87205; 87635; 96365; 96375; 99284; 99406; C9803; J0690; J1170; J1885; J2250; J2405; J2704; J3010